=== PATIENT | female | born 1950 | race Caucasian/White ===

== ENCOUNTER → 2016-02-22 | Outpatient (CLI) | payer MEDICARE, BC ==
[2016-02-22 14:40] LABS: Anion Gap 9 mmol/L; Blood Urea Nitrogen 16 mg/dL (7-17); Calcium 9.6 mg/dL (8.4-10.2); Carbon Dioxide 30 mmol/L (22-30); Chloride 103 mmol/L (98-107); Creatine Kinase 41 U/L (30-135); Glucose 100 mg/dL (74-99); Non-African American GFR(MDRD) >60 (>60 ml/min/1.73 sqM); Potassium 5.1 mmol/L (3.5-5.1); Sodium 142 mmol/L (137-145)
[2016-02-22 14:42] LABS: Rheumatoid Factor, Qnt <9 IU/mL (<12)
[2016-02-22 15:29] LABS: Vitamin B12 464 pg/mL
[2016-02-22 19:58] LABS: ANA w/Reflex to Titer NEGATIVE (NEGATIVE)
[2016-02-23 03:21] LABS: Lyme Antibodies Total(IgG/IgM) 0.08 (<0.90)
== END | disposition home or self-care (01) ==
LOC: LABWHC1 13:54
PROVIDERS: ATTEND Psychiatry & Neurology Neurology
DX: G62.9 Polyneuropathy, unspecified (principal)
CPT/HCPCS: 36415; 80048; 82550; 82607; 82747; 83036; 84165; 84207; 84439; 84443; 85652; 86038; 86225; 86431; 86618

== ENCOUNTER → 2016-03-28 | Outpatient (CLI) | payer MEDICARE, BC ==
--- NOTE | 2016-03-29 09:55 | MM ---
Reason for exam: screening (asymptomatic). Last mammogram was performed 1 year ago. History: Patient is postmenopausal. Family history of breast cancer in cousin at age 60. Benign left mammotome panel of the left breast, June 19, 2007. Took estrogen for 6 years beginning at age 52. Physical Findings: A clinical breast exam by your physician is recommended on an annual basis and results should be correlated with mammographic findings. MG 3D Screening Mammo W/Cad Bilateral CC and MLO view(s) were taken. Prior study comparison: March 25, 2015, bilateral MG screening mammo w CAD. February 04, 2014, bilateral MG diagnostic mammo w CAD SOLITARIO. The breast tissue is heterogeneously dense. This may lower the sensitivity of mammography. Finding: There are round calcifications. There is a chronic nodularity bilaterally. No significant changes in finding since March 25, 2015 and February 04, 2014. ASSESSMENT: Benign, BI-RAD 2 RECOMMENDATION: Routine screening mammogram of both breasts in 1 year.
== END | disposition home or self-care (01) ==
LOC: RADMAMWWP 10:40
PROVIDERS: ATTEND Family Medicine
DX: Z12.31 Encounter for screening mammogram for malignant neoplasm of breast (principal)
CPT/HCPCS: 77063; G0202

== ENCOUNTER → 2017-11-22 | Outpatient (CLI) | payer MEDICARE, BC ==
--- NOTE | 2017-11-24 11:03 | MM ---
Reason for exam: screening (asymptomatic). Last mammogram was performed 1 year and 8 months ago. History: Patient is postmenopausal. Family history of breast cancer in cousin at age 60. Benign left mammotome panel of the left breast, June 19, 2007. Took estrogen for 6 years beginning at age 52. Physical Findings: A clinical breast exam by your physician is recommended on an annual basis and results should be correlated with mammographic findings. MG 3D Screening Mammo W/Cad Bilateral CC and MLO view(s) were taken. Prior study comparison: March 28, 2016, bilateral MG 3d screening mammo w/cad. March 25, 2015, bilateral MG screening mammo w CAD. The breast tissue is heterogeneously dense. This may lower the sensitivity of mammography. Previous mammotome biopsy in the left breast. Stable focal asymmetries right breast and regional calcifications left breast. No significant changes when compared with prior studies. ASSESSMENT: Benign, BI-RAD 2 RECOMMENDATION: Routine screening mammogram of both breasts in 1 year.
== END | disposition home or self-care (01) ==
LOC: RADMAMWWP 13:35
PROVIDERS: ATTEND Family Medicine
DX: Z12.31 Encounter for screening mammogram for malignant neoplasm of breast (principal)
CPT/HCPCS: 77063; 77067

== ENCOUNTER → 2018-06-14 | Outpatient (CLI) | payer MEDICARE, BC ==
--- NOTE | 2018-06-14 15:58 | CT ---
EXAMINATION TYPE: CT brain wo con, CT orbits wo con DATE OF EXAM: 06/14/2018 HISTORY: Right orbital bruising after syncopal episode with fall injury x3 days ago CT DLP: 1201.24 (accession [id number]), 402.68 (accession [id number]) mGycm. Automated Exposure Control for Dose Reduction was Utilized. TECHNIQUE: CT scan of the had and orbits are performed without contrast. COMPARISON: None. FINDINGS: There is no acute intracranial hemorrhage or midline shift identified. Ventricles and sul ci are normal in size. Snyder-white matter differentiation is maintained. The calvarium is intact. The orbital floors and kan are intact. The globes are intact bilaterally. Intraconal fat is preserv ed. There is mild to moderate preseptal hematoma extending inferiorly. Nasal bones are intact. Zygoma tic arches are intact. Pterygoid plates are intact. Visualized paranasal sinuses are clear. IMPRESSION: 1. No acute intracranial hemorrhage or midline shift. 2. No acute orbital wall fracture. [id number] inferior acute preseptal hematoma extending over right maxillary sinus.
== END ==
LOC: RADCTMAIN 15:22
PROVIDERS: ATTEND Family Medicine
DX: S09.90XA Unspecified injury of head, initial encounter (principal); S05.41XA Penetrating wound of orbit with or without foreign body, right eye, initial encounter
CPT/HCPCS: 70450; 70480

== ENCOUNTER → 2019-12-24 | Outpatient (CLI) | payer MEDICARE ==
--- NOTE | 2019-12-25 09:24 | MM ---
Reason for exam: screening (asymptomatic). Last mammogram was performed 2 years and 1 month ago. History: Patient is postmenopausal. Family history of breast cancer in cousin at age 60. Benign left mammotome panel of the left breast, June 19, 2007. Took estrogen for 6 years beginning at age 52. Physical Findings: A clinical breast exam by your physician is recommended on an annual basis and results should be correlated with mammographic findings. MG Screening Mammo w CAD Bilateral CC and MLO view(s) were taken. Prior study comparison: November 22, 2017, bilateral MG 3d screening mammo w/cad. March 28, 2016, bilateral MG 3d screening mammo w/cad. The breast tissue is heterogeneously dense. This may lower the sensitivity of mammography. Focal asymmetry inner central right breast. These results were verbally communicated with the patient and result sheet given to the patient on 12/24/19. ASSESSMENT: Incomplete: need additional imaging evaluation, BI-RAD 0 RECOMMENDATION: Special view mammogram of the right breast. If lesion persists on supplemental views, image directed ultrasound is recommended. [facility] will attempt to contact patient to return for supplemental views and ultrasound if indicated.
== END | disposition home or self-care (01) ==
LOC: RADMAMWWP 16:36
PROVIDERS: ATTEND Family Medicine
DX: Z12.31 Encounter for screening mammogram for malignant neoplasm of breast (principal)
CPT/HCPCS: 77067

== ENCOUNTER → 2020-01-08 | Outpatient (CLI) | payer MEDICARE ==
--- NOTE | 2020-01-09 08:35 | MM ---
Reason for exam: additional evaluation requested from abnormal screening. Last mammogram was performed less than 1 month ago. History: Patient is postmenopausal. Family history of breast cancer in cousin at age 60. Benign left mammotome panel of the left breast, June 19, 2007. Took estrogen for 6 years beginning at age 52. Physical Findings: Nurse did not find any significant physical abnormalities on exam. MG 3D Work Up W/Cad RT CC and MLO view(s) were taken of the right breast. Prior study comparison: December 24, 2019, bilateral MG screening mammo w CAD. November 22, 2017, bilateral MG 3d screening mammo w/cad. The breast tissue is heterogeneously dense. This may lower the sensitivity of mammography. There is no discrete abnormality. These results were verbally communicated with the patient and result sheet given to the patient on 01/08/20. ASSESSMENT: Benign, BI-RAD 2 RECOMMENDATION: Return to routine screening mammogram schedule for both breasts.
== END | disposition home or self-care (01) ==
LOC: RADMAMWWP 15:00
PROVIDERS: ATTEND Family Medicine
DX: R92.8 Other abnormal and inconclusive findings on diagnostic imaging of breast (principal)
CPT/HCPCS: 77065; G0279; 77061

== ENCOUNTER → 2021-03-12 | Outpatient (CLI) | payer MEDICARE ==
--- NOTE | 2021-03-16 09:10 | MM ---
Reason for exam: screening (asymptomatic). Last mammogram was performed 1 year and 2 months ago. History: Patient is postmenopausal. Family history of breast cancer in cousin at age 60. Benign left mammotome panel of the left breast, June 19, 2007. Took estrogen for 6 years beginning at age 52. Physical Findings: A clinical breast exam by your physician is recommended on an annual basis and results should be correlated with mammographic findings. MG 3D Screening Mammo W/Cad Bilateral CC and MLO view(s) were taken. Prior study comparison: January 08, 2020, right breast MG 3d work up w/cad RT. December 24, 2019, bilateral MG screening mammo w CAD. The breast tissue is heterogeneously dense. This may lower the sensitivity of mammography. Previous mammotome biopsy in the left breast. There is chronic nodularity in the left breast. Global asymmetry 6 o'clock left breast. Benign bilateral vascular calcifications. No significant changes when compared with prior studies. ASSESSMENT: Benign, BI-RAD 2 RECOMMENDATION: Routine screening mammogram of both breasts in 1 year. Patient should continue monthly self breast exams. A negative report should not preclude additional follow up of suspicious palpable abnormalities.
== END | disposition home or self-care (01) ==
LOC: RADMAMWWP 15:54
PROVIDERS: ATTEND Family Medicine
DX: Z12.31 Encounter for screening mammogram for malignant neoplasm of breast (principal)
CPT/HCPCS: 77063; 77067

== ENCOUNTER → 2023-04-03 | Outpatient (CLI) | payer MEDICARE ==
--- NOTE | 2023-04-04 20:09 | MM ---
Reason for Exam: Screening (asymptomatic). Last screening mammogram was performed 12 month(s) ago. Patient History: Menarche at age 11. First Full-Term at age 18. Hysterectomy at age 50. Postmenopausal. Estrogen, starting at age 52 for 6 years. 06/19/2007, Benign Core Biopsy on the left side. Maternal cousin had breast cancer, age 60. Risk Values: Luzma 5 year model risk: 1.9%. NCI Lifetime model risk: 4.3%. Prior Study Comparison: 03/28/2016 Bilateral Screening Mammogram, [facility]. 11/22/2017 Bilateral Screening Mammogram, [facility]. 12/24/2019 Bilateral Screening Mammogram, [facility]. 01/08/2020 Right Diagnostic Mammogram, [facility]. 03/12/2021 Bilateral Screening Mammogram, [facility]. 04/01/2022 Bilateral MG 3D screening mammo w/cad, [facility]. Tissue Density: The breast tissue is heterogeneously dense. This may lower the sensitivity of mammography. Findings: Analyzed By CAD. Unchanged bilateral asymmetric densities when compared against various prior studies. There is no suspicious group of microcalcifications or new suspicious mass in either breast. Overall Assessment: Benign, BI-RAD 2 Management: Screening Mammogram of both breasts in 1 year. . Patient should continue monthly self-breast exams. A clinical breast exam by your physician is recommended on an annual basis. This exam should not preclude additional follow-up of suspicious palpable abnormalities. Note on Luzma scores and lifetime risk: 1. A Luzma score greater than 3% is considered moderate risk. If this is the case, consider specialist referral to assess eligibility for a risk reducing agent. 2. If overall lifetime risk for the development of breast cancer is 20% or higher, the patient may qualify for future screening with alternating mammogram and breast MRI. Electronically signed and approved by: Vega Smith M.D. Radiologist
== END | disposition home or self-care (01) ==
LOC: RADMAMWWP 09:48
PROVIDERS: ATTEND Family Medicine
DX: Z12.31 Encounter for screening mammogram for malignant neoplasm of breast (principal); Z80.3 Family history of malignant neoplasm of breast; Z78.0 Asymptomatic menopausal state
CPT/HCPCS: 77063; 77067

== ENCOUNTER 2023-10-18 10:50 | Day surgery (SDC) | payer MEDICARE ==
[2023-10-16 08:51] VITALS: BMI 29.1
[~2023-10-18 10:50] MED LIST: LIDOCAINE 1% (10MG/ML) FOR IV START INTRADERMA PRN
[2023-10-18 11:14] VITALS: TEMP 97.9
[2023-10-18] MEDS: LACTATED RINGERS 1,000 ML IV SCH (11:25)
[2023-10-18] MEDS: IV FLUID CONTINUATION 1,000 ML IV ONE (11:26)
[2023-10-18 11:28] LABS: Glucose,Whole Blood 91 mg/dL (70-110)
[2023-10-18] MEDS ORDERED: PROPOFOL 10 MG/ML 20 ML VIAL IV ONE (11:44)
--- NOTE | 2023-10-18 12:01 | P.PCN ---
Date of Procedure: 10/18/23 Procedure(s) Performed: BRIEF HISTORY: Patient is a 73-year-old pleasant white female scheduled for an elective colonoscopy as a part of screening for colon cancer. PROCEDURE PERFORMED: Colonoscopy with snare polypectomy. PREOPERATIVE DIAGNOSIS: Screening for colon cancer. IV sedation per Anesthesia. PROCEDURE: After informed consent was obtained, the patient, was brought into the endoscopy unit. IV sedation was administered by Anesthesia under continuous monitoring. Digital rectal examination was normal. Initially the Olympus CF-160 flexible video colonoscope was then inserted in the rectum, gradually advanced into the cecum without any difficulty. Careful examination was performed as the scope was gradually being withdrawn. Ileocecal valve and the appendiceal orifice were visualized and appeared normal. Prep was excellent. Mucosa of the cecum had a 6 mm sessile polyp removed by cold snare polypectomy. In the past flexure there is a 5 mm polyp that was removed by cold snare polypectomy. In the transverse colon there was a 4 mm and a 6 mm polyp removed by cold snare polypectomy. Sigmoid colon and rectum appeared normal. In the distal rectum there was a 5 mm polyp removed by cold snare polypectomy. Retroflexion was performed in the rectum and small internal hemorrhoid s were seen. The patient tolerated the procedure well. IMPRESSION: 6 mm cecal polyp status post cold snare polypectomy 5 mm hepatic flexure polyp status post cold snare polypectomy 4 mm and 6 mm transverse colon polyp status post cold snare polypectomy 5 mm rectal polyp status post cold snare polypectomy Small internal hemorrhoids RECOMMENDATIONS: Findings of this examination were discussed with the patient as well as her family. She was advised to follow-up with the biopsy results. If the biopsy reveals adenoma she can have repeat colonoscopy in 3 years..
[2023-10-18 12:31] VITALS: BP 151/83; PULSE 65; RESP 18
== END 2023-10-18 12:46 | disposition home or self-care (01) ==
LOC: ORWHC2ENDO 10:50
PROVIDERS: ATTEND Internal Medicine Gastroenterology
DX: Z12.11 Encounter for screening for malignant neoplasm of colon (principal); D12.0 Benign neoplasm of cecum; D12.3 Benign neoplasm of transverse colon; K62.1 Rectal polyp; K64.8 Other hemorrhoids
CPT/HCPCS: 45385; 88305

== ENCOUNTER → 2024-04-09 | Outpatient (CLI) | payer MEDICARE ==
--- NOTE | 2024-04-09 14:25 | CT ---
EXAMINATION TYPE: CT chest wo con DATE OF EXAM: 04/09/2024 COMPARISON: CT abdomen dated 03/26/2019 CLINICAL INDICATION: Female, 73 years old with history of SPN; PHH, Lung nodule. TECHNIQUE: CT scan of the thorax is performed without IV contrast. CT DLP: [address] CTDI: mGy Automated exposure control for dose reduction was used. FINDINGS: 1. There is a 5 mm nodule in the right middle lobe which was seen on prior CT abdomen. There is a 4.3 mm nodule right lower lobe. Possibility of metastatic disease not entirely excluded and follow-up CT thorax is recommended in 4-6 months. 2. No acute cardiopulmonary disease. 3. no adenopathy. 4. No focal osseous lesions. [facility], , 04/09/2024 2:23 PM
--- NOTE | 2024-04-09 14:33 | CT ---
EXAMINATION TYPE: CT pelvis wo con DATE OF EXAM: 04/09/2024 COMPARISON: None CLINICAL INDICATION: Female, 73 years old with history of kidney disorder; PHH, Kidney disorder. CT DLP: 329 mGycm Automated exposure control for dose reduction was used. FINDINGS: The visualized bowel loops are normal in caliber. No inflammatory changes are identified in the visua lized mesentery. There is no pelvic mass or adenopathy. 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 Visualized portions of the lower poles of the kidneys are normal. There are no focal osseous lesions. There is moderate to marked degenerative disease in lower lumbar spine. There is probable moderate to severe spinal stenosis L4-5 level level and possibly a mild spinal stenosis at the L5-S1 level. IMPRESSION: ADVANCED DEGENERATIVE DISC DISEASE AND PROBABLE SPINAL STENOSIS IN THE LOWER LUMBAR SPINE DESCRIBE D ABOVE. [facility], , 04/09/2024 2:31 PM
== END | disposition home or self-care (01) ==
LOC: RADCTMAIN 13:26
PROVIDERS: ATTEND Family Medicine
DX: N28.89 Other specified disorders of kidney and ureter (principal); R91.1 Solitary pulmonary nodule; M51.360 Other intervertebral disc degeneration, lumbar region with discogenic back pain only
CPT/HCPCS: 71250; 72192

== ENCOUNTER → 2024-04-19 | Outpatient (CLI) | payer MEDICARE ==
--- NOTE | 2024-04-19 11:49 | MM ---
Reason for Exam: Screening (asymptomatic). Last mammogram was performed 1 year(s) and 1 month(s) ago. Patient History: Menarche at age 11. First Full-Term at age 18. Hysterectomy at age 50. Postmenopausal. Estrogen, starting at age 52 for 6 years. 06/19/2007, Benign Core Biopsy on the left side. Maternal cousin had breast cancer, age 60. Risk Values: Luzma 5 year model risk: 1.9%. NCI Lifetime model risk: 4.0%. Prior Study Comparison: 03/12/2021 Bilateral Screening Mammogram, [facility]. 04/01/2022 Bilateral MG 3D screening mammo w/cad, [facility]. 04/03/2023 Bilateral MG 3D screening mammo w/cad, [facility]. Tissue Density: The breasts are heterogeneously dense, which may obscure small masses. Findings: Analyzed By CAD. There is no suspicious group of microcalcifications or new suspicious mass in either breast. Overall Assessment: Benign, BI-RAD 2 Management: Screening Mammogram of both breasts in 1 year. . Patient should continue monthly self-breast exams. A clinical breast exam by your physician is recommended on an annual basis. This exam should not preclude additional follow-up of suspicious palpable abnormalities. Note on Luzma scores and lifetime risk: 1. A Luzma score greater than 3% is considered moderate risk. If this is the case, consider specialist referral to assess eligibility for a risk reducing agent. 2. If overall lifetime risk for the development of breast cancer is 20% or higher, the patient may qualify for future screening with alternating mammogram and breast MRI. [facility], , 04/19/2024 11:46 AM. Electronically signed and approved by: Jm Medrano M.D. Radiologis
== END | disposition home or self-care (01) ==
LOC: RADMAMWWP 10:45
PROVIDERS: ATTEND Family Medicine
DX: Z12.31 Encounter for screening mammogram for malignant neoplasm of breast (principal); R92.333 Mammographic heterogeneous density, bilateral breasts; Z78.0 Asymptomatic menopausal state; Z80.3 Family history of malignant neoplasm of breast
CPT/HCPCS: 77063; 77067

== ENCOUNTER 2024-08-13 16:36 | Emergency (ER) | payer MEDICARE ==
[2024-08-13 17:16] VITALS: PULSE 62
[2024-08-13 17:43] LABS: Basophils # (A) 0.05 10*3/uL (0.00-0.10); Basophils % (A) 0.8 %; Eosinophils # (A) 0.10 10*3/uL (0.04-0.35); Eosinophils % (A) 1.7 %; HCT 40.9 % (37.2-46.3); HGB 13.6 g/dL (12.0-15.0); Lymphocytes # (A) 1.84 10*3/uL (0.90-5.00); Lymphocytes % (A) 30.4 %; MCH 29.4 pg (27.0-32.0); MCHC 33.3 g/dL (32.0-37.0); MCV 88.5 fL (80.0-97.0); Monocytes # (A) 0.46 10*3/uL (0.20-1.00); Monocytes % (A) 7.6 %; Neutrophils # (A) 3.58 10*3/uL (1.80-7.70); Neutrophils % (A) 59.2 %; Platelet Count 318 10*3/uL (140-440); RBC 4.62 10*6/uL (4.10-5.20); RDW 13.4 % (11.5-14.5); WBC 6.05 10*3/uL (4.50-10.00)
[2024-08-13 18:00] LABS: ALT 366 U/L (4-34); AST 509 U/L (14-36); African American GFR (CKD) >90 (>60 ml/min/1.73 sqM); Albumin 4.5 g/dL (3.5-5.0); Alkaline Phosphatase 164 U/L (38-126); Amylase 41 U/L (30-110); Anion Gap 8 mmol/L; Blood Urea Nitrogen 10 mg/dL (7-17); Calcium 9.3 mg/dL (8.4-10.2); Carbon Dioxide 28 mmol/L (22-30); Chloride 101 mmol/L (98-107); Glucose 134 mg/dL (74-99); Lipase 63 U/L (23-300); Non-African American GFR(CKD) 88 (>60 ml/min/1.73 sqM); Potassium 4.3 mmol/L (3.5-5.1); Sodium 137 mmol/L (137-145); Total Protein 7.4 g/dL (6.3-8.2)
--- NOTE | 2024-08-13 20:08 | ED ---
Abdominal Pain HPI - General Chief Complaint: Abdominal Pain Stated Complaint: abdominal pain Time Seen by Provider: 08/13/24 19:00 Source: patient, RN notes reviewed Mode of arrival: ambulatory Limitations: no limitations - History of Present Illness Initial Comments: 73-year-old female presents emergency department complaint of right-sided abdominal pain. 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 She had a follow-up CT which showed some nodules of her lung and she had another CT confirming those nodules but states pain in her abdomen worsened. She denies any vomiting states that she is nauseous she has upper abdominal pain no chest pain or shortness of breath. - Related Data Home Medications Medication Instructions Recorded Confirmed Cholecalciferol [Vitamin D3 (125 125 mcg PO DAILY 10/16/23 10/18/23 Mcg = 5000 Iu)] DULoxetine HCL [Cymbalta] 60 mg PO BID 10/16/23 10/18/23 Gabapentin [Neurontin] 800 mg PO TID 10/16/23 10/18/23 Krill/Om-3/Dha/Epa/Phospho/Ast 1 each PO DAILY 10/16/23 10/18/23 [Krill Oil 600 mg Softgel] Semaglutide [Rybelsus] 3 mg PO DAILY 10/16/23 10/18/23 atenoloL [Tenormin] 50 mg PO HS 10/16/23 10/18/23 Allergies Allergy/AdvReac Type Severity Reaction Status Date / Time venlafaxine [From Effexor] Allergy shaking Verified 10/18/23 11:09 sensation internally codeine AdvReac Nausea & Verified 10/18/23 11:09 Vomiting Review of Systems ROS Statement: Those systems with pertinent positive or pertinent negative responses have been documented in the HPI. ROS Other: All systems not noted in ROS Statement are negative. 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 History of Any Multi-Drug Resistant Organisms: None Reported Past Surgical History: Bladder Surgery, Hysterectomy Additional Past Surgical History / Comment(s): right kidney tumor removed Past Anesthesia/Blood Transfusion Reactions: Postoperative Nausea & Vomiting (PONV) Past Psychological History: Depression Smoking Status: Never smoker Past Alcohol Use History: Rare Past Drug Use History: None Reported General Exam Limitations: no limitations General appearance: alert, in no apparent distress Head exam: Present: atraumatic, normocephalic, normal inspection Eye exam: Present: normal appearance, PERRL, EOMI. Absent: scleral icterus, conjunctival injection, periorbital swelling ENT exam: Present: normal exam, normal oropharynx, mucous membranes moist Neck exam: Present: normal inspection, full ROM. Absent: tenderness, meningismus, lymphadenopathy Respiratory exam: Present: normal lung sounds bilaterally. Absent: respiratory distress, wheezes, rales, rhonchi, stridor Cardiovascular Exam: Present: regular rate, normal rhythm, normal heart sounds. Absent: systolic murmur, diastolic murmur, rubs, gallop, clicks GI/Abdominal exam: Present: soft, tenderness, normal bowel sounds. Absent: distended, guarding, rebound, rigid Course Vital Signs 08/13/24 17:13 Temperature 98.4 F Pulse Rate 62 Respiratory 16 Rate Blood Pressure 170/89 O2 Sat by Pulse 97 Oximetry Medical Decision Making - Medical Decision Making Was pt. sent in by a medical professional or institution (, PA, PLUMBER HELPER, urgent care, hospital, or residential...) When possible be specific @ -No Did you speak to anyone other than the patient for history (EMS, parent, family, police, friend...)? What history was obtained from this source @ -No Did you review nursing and triage notes (agree or disagree)? Why? @ -I reviewed and agree with nursing and triage notes Were old charts reviewed (outside hosp., previous admission, EMS record, old EKG, old radiological studies, urgent care reports/EKG's, residential records)? Report findings @ -No old charts were reviewed Differential Diagnosis (chest pain, altered mental status, abdominal pain women, abdominal pain men, vaginal bleeding, weakness, fever, dyspnea, syncope, headache, dizziness, GI bleed, back pain, seizure, CVA, palpatations, mental health, musculoskeletal)? @ -Differential Abdominal Pain Women: Appendicitis, Cholecystitis, diverticulosis, ischemic bowel, pancreatitis, hepatitis, UTI, gastroenteritis, AAA, incarcerated hernia, bowel obstruction, constipation, inflammatory bowel, hepatitis, peptic ulcer disease, splenic infarction, perforated viscus, vulvitis, ovarian torsion, PID, kidney stone, placenta abruption, this is not meant to be an all-inclusive list EKG interpreted by me (3pts min.). @ -None X-rays interpreted by me (1pt min.). @ -None done CT interpreted by me (1pt min.). @ -None done U/S interpreted by me (1pt. min.). @ -Ultrasound of the gallbladder showing evidence of cholelithiasis, multiple stones. Neck, mildly dilated common bile duct What testing was considered but not performed or refused? (CT, X-rays, U/S, labs)? Why? @ -None What meds were considered but not given or refused? Why? @ -None Did you discuss the management of the patient with other professionals (professionals i.e. , PA, PLUMBER HELPER, lab, RT, psych nurse, social insurance analyst, toy consultant, teacher, project officer, cyanide case hardener)? Give summary @ -No Was smoking cessation discussed for >3mins.? @ -No Was critical care preformed (if so, how long)? @ -No Were there social determinants of health that impacted care today? How? (Homelessness, low income, unemployed, alcoholism, drug addiction, transportation, low edu. Level, literacy, decrease access to med. care, detention, rehab)? @ -No Was there de-escalation of care discussed even if they declined (Discuss DNR or withdrawal of care, Hospice)? DNR status @ -No What co-morbidities impacted this encounter? (DM, HTN, Smoking, COPD, CAD, Cancer, CVA, ARF, Chemo, Hep., AIDS, mental health diagnosis, sleep apnea, morbid obesity)? @ -None Was patient admitted / discharged? Hospital course, mention meds given and route, prescriptions, significant lab abnormalities, going to OR and other pertinent info. @ -[Discharge patient updated on ultrasound results, laboratory results and concerns of choledocholithiasis given transaminitis and no prior lab work to compare to a recent she states her pain is improving and states that she has had these attacks in the past. I did recommend that she be transferred to facility with GI for evaluation for concerns of choledocholithiasis. She states she is scheduled see GI and her pain is nearly resolved and she prefers to be discharged. She does understand the risk of leaving and was given strict return parameters. Undiagnosed new problem with uncertain prognosis? @ -No Drug Therapy requiring intensive monitoring for toxicity (Heparin, Nitro, Insulin, Cardizem)? @ -No Were any procedures done? @ -No Diagnosis/symptom? @ -Cholelithiasis, transaminitis, Acute, or Chronic, or Acute on Chronic? @ -Acute Uncomplicated (without systemic symptoms) or Complicated (systemic symptoms)? @ -Complicated Side effects of treatment? @ -No Exacerbation, Progression, or Severe Exacerbation? @ -No Poses a threat to life or bodily function? How? (Chest pain, [place], NH, pneumonia, PE, COPD, DKA, ARF, appy, cholecystitis, CVA, Diverticulitis, Homicidal, Suicidal, threat to staff... and all critical care pts) @ -Yes possible choledocholithiasis, infection. - Lab Data Result diagrams: 08/13/24 17:26 08/13/24 17:26 Lab Results 08/13/24 08/13/24 08/13/24 Range/Units 17:26 17:26 17:26 WBC 6.05 (4.50-10.00) 10*3/uL RBC 4.62 (4.10-5.20) 10*6/uL Hgb 13.6 (12.0-15.0) g/dL Hct 40.9 (37.2-46.3) % MCV 88.5 (80.0-97.0) fL MCH 29.4 (27.0-32.0) pg MCHC 33.3 (32.0-37.0) g/dL Plt Count 318 (140-440) 10*3/uL MPV 9.3 L (9.5-12.2) fL Immature Gran % (Auto) 0.3 % Neutrophils % 59.2 % Lymphocytes % 30.4 % Monocytes % 7.6 % Eosinophils % 1.7 % Basophils % 0.8 % Immature Gran # 0.02 (0.00-0.04) 10*3/uL Neutrophils # 3.58 (1.80-7.70) 10*3/uL Lymphocytes # 1.84 (0.90-5.00) 10*3/uL Monocytes # 0.46 (0.20-1.00) 10*3/uL Eosinophils # 0.10 (0.04-0.35) 10*3/uL Basophils # 0.05 (0.00-0.10) 10*3/uL Sodium 137 (137-145) mmol/L Potassium 4.3 (3.5-5.1) mmol/L Chloride 101 (98-107) mmol/L Carbon Dioxide 28 (22-30) mmol/L Anion Gap 8 mmol/L BUN 10 (7-17) mg/dL Creatinine 0.63 (0.52-1.04) mg/dL Est GFR (CKD-EPI)AfAm >90 (>60 ml/min/1.73 sqM) Est GFR (CKD-EPI)NonAf 88 (>60 ml/min/1.73 sqM) Glucose 134 H (74-99) mg/dL Calcium 9.3 (8.4-10.2) mg/dL Total Bilirubin 2.5 H (0.2-1.3) mg/dL AST 509 H (14-36) U/L ALT 366 H (4-34) U/L Alkaline Phosphatase 164 H (38-126) U/L Troponin I <0.012 (0.000-0.034) ng/mL Total Protein 7.4 (6.3-8.2) g/dL Albumin 4.5 (3.5-5.0) g/dL Amylase 41 (30-110) U/L Lipase 63 (23-300) U/L Disposition Clinical Impression: Transaminitis, Choledocholithiasis Disposition: HOME SELF-CARE Condition: Stable Instructions (If sedation given, give patient instructions): Gallstones (ED), Low Fat Diet (ED) Additional Instructions: Please return to the Emergency Department if symptoms worsen or any other concerns. Is patient prescribed a controlled substance at d/c from ED?: No Referrals: Cristian Enciso MD [Primary Care Provider] - 1-2 days Time of Disposition: 21:31
--- NOTE | 2024-08-13 21:14 | US ---
EXAMINATION TYPE: US gallbladder DATE OF EXAM: 08/13/2024 COMPARISON: CT 03/26/24 CLINICAL INDICATION: Female, 73 years old with history of pain; patient states RUQ pain. states hx of right renal tumor with removal in June. Abd pain that comes and goes TECHNIQUE: Grayscale and color Doppler imaging of the right upper quadrant was performed. FINDINGS: EXAM MEASUREMENTS: Liver Length: 13.3 cm Gallbladder Wall: 0.2 cm CBD: 0.9 cm Right Kidney: 9.4 x 3.7 x 4.1 cm DAMPPROOFER NOTES:slightly limited due to overlying gas Pancreas: visualized portions appear slightly echogenic Liver: wnl Gallbladder: multiple small echogenic foci seen within the neck. hydropic Evidence for sonographic Portillo's sign: yes CBD: dilated Right Kidney: wnl as best seen IMPRESSION: 1. Cholelithiasis. No suspicious ultrasound changes for acute cholecystitis. [facility], , 08/13/2024 9:12 PM
[2024-08-13 22:36] VITALS: BP 180/80; RESP 18; TEMP 98
== END 2024-08-13 22:36 | disposition home or self-care (01) ==
LOC: EC 16:36
DX: K80.70 Calculus of gallbladder and bile duct without cholecystitis without obstruction (principal); R74.01 Elevation of levels of liver transaminase levels; Z88.5 Allergy status to narcotic agent; Z88.8 Allergy status to other drugs, medicaments and biological substances
CPT/HCPCS: 36415; 76705; 80053; 82150; 83690; 84484; 85025; 93005; 99284

== ENCOUNTER → 2024-08-13 | Outpatient (CLI) | payer MEDICARE ==
--- NOTE | 2024-08-13 12:48 | CT ---
EXAMINATION TYPE: CT chest wo con DATE OF EXAM: 08/13/2024 12:02 PM COMPARISON: CT 04/09/2024. CLINICAL INDICATION: Female, 73 years old with history of R91.8 OTHER NONSPECIFIC ABNORMAL FINDING OF LUNG F; PHH, nodules TECHNIQUE: Multiple axial images were obtained through the chest. Sagittal and coronal reformats were created for review. MIP was performed on a separate workstation. Contrast used: mL of (None if empty) Oral contrast used: (None if empty) CT DLP: 307.3 mGycm, Automated exposure control for dose reduction was used. FINDINGS: LUNGS/ PLEURA: No focal consolidation, pneumothorax or pleural effusion. Stable right middle lobe 4 m m nodule. Series 2 image 43. No new or enlarging pulmonary nodules. Stable right 4 mm right upper lob e pulmonary nodule series 3 image 24. AIRWAY: Patent and unremarkable. HEART: Cardiomegaly is demonstrated. No significant coronary artery calcifications. MEDIASTINUM: No gross evidence of adenopathy. VASCULATURE: Atherosclerotic calcifications are present throughout the aorta and its branches. MUSCULOSKELETAL: Moderate disc degeneration changes are present throughout the thoracolumbar spine se condary to osteophyte formation and facet joint arthropathy. SOFT TISSUES/LYMPH NODES: Unremarkable. LOWER NECK: No significant findings. UPPER ABDOMEN: No postsurgical changes of the right kidney. Suggested. IMPRESSION: 1. Stable sub-6 mm nodules consider low dose lung cancer screening yearly. 2. No acute process. Follow up recommendations for incidental pulmonary nodules, if there are any, are per [employer] or [employer]. https://radiopaedia.org/articles/ryflcmqvqf-xydkwye-[email or web address]?lang=us [facility], , 08/13/2024 12:46 PM
== END | disposition home or self-care (01) ==
LOC: RADCTMAIN 11:33
PROVIDERS: ATTEND Family Medicine
DX: R91.8 Other nonspecific abnormal finding of lung field (principal)
CPT/HCPCS: 71250